=== PATIENT | female | born 1940 | race Caucasian/White ===

== ENCOUNTER → 2016-05-02 | Outpatient (CLI) | payer MEDICARE, BC ==
--- NOTE | ~2016-05-02 | ECH ---
Transthoracic Echocardiography Report (TTE) Demographics Patient Name GENNA REES Date of Study 05/02/2016 Patient Number [id number] Visit Number [id number] Date of 1940 Room Number Accession Number [id number] Gender Female Age 75 year(s) Referring Srikanth Noel Batterboard Setter Kathy Lowe [facility] Physician Physician Interpreting Fernando Key Lead Javascript Engineer Physician MD Supervising Ordering Physician Srikanth Noel MD, MD/P Nurse Stress Operations Processor Conclusions Summary Technically adequate exam. The estimated left ventricular ejection fraction is 60-65%. Mild left ventricular hypertrophy. Diastolic assessment reveals Grade I diastolic dysfunction. Bubble study was done, there is no evidence for a PFO or ASD. No significant valvular abnormalities. Procedure Type of Study TTE procedure:Echo Complete SF. Procedure Date Date: 05/02/2016 Start: 09:37 AM Technical Quality: Adequate visualization Additional Indications:family history of PFO Appropriate Use Criteria: 9 Contrast Medium: Bubble Study. Height: 62 inches Weight: 150 pounds BSA: 1.69 m Rhythm: Within normal limits HR: 67 bpm BP: 129/63 mmHg M-Mode/2D Measurements LV Diastolic Dimension: 3.37 cm LV Systolic Dimension: 1.97 cm LV Septum Diastolic: 1.11 cm LV PW Diastolic: 1.2 cm AO Root Dimension: 2.88 cm Cardiac Output: 3 l/min LA Dimension: 3.51 cm Cardiac Index: 1.78 l/min*m RV Diastolic Dimension: 3.29 cm LA volume index: 21 ml/m LVOT: 1.99 cm LVOT VTI: 14.41 cm RV Base: 2.4 cm LV Stroke volume: 44.8 ml RV Mid: 1.5 cm LV Stroke volume index: 26.51 ml/m RV Length: 6.8 cm TAPSE: 2 cm TDI-S': 11 cm/s Doppler Measurements AV Peak Velocity: 1.1 m/s MV Peak E-Wave: 0.61 m/s AV Peak Gradient: 4.84 mmHg MV Peak A-Wave: 1.05 m/s AV Mean Gradient: 3.07 mmHg MV E/A Ratio: 0.58 LVOT Peak Velocity: 0.71 m/s MV P1/2t: 64.1 msec AV Area (Continuity):1.76 cm MV Deceleration Time: 207.2 msec TR Velocity:2.28 m/s MV Area (PHT): 3.43 cm TR Gradient:20.79 mmHg Estimated RAP:5 mmHg Estimated PASP: 25.79 mmHg Estimated RVSP: 26 mmHg RA Area: 11.56 cm Findings Left Ventricle The left ventricle is normal in size . Mild left ventricular hypertrophy. Diastolic assessment reveals Grade I diastolic dysfunction. Right Ventricle Normal right ventricle structure and function. Left Atrium Normal left atrial size. Bubble study was done, there is no evidence for a PFO or ASD. Right Atrium Normal right atrial size. Mitral Valve Normal mitral valve structure and function. Mild mitral regurgitation by color Doppler. Aortic Valve Normal aortic valve structure and function. There is no aortic regurgitation by color Doppler. Tricuspid Valve Normal appearing tricuspid valve. Trivial tricuspid regurgitation by color Doppler. Estimated pulmonary pressures within normal limits. Pulmonic Valve The pulmonic valve is not well visualized. Pericardial Effusion No evidence of pericardial effusion. Miscellaneous Visualized portions of the aortic root and ascending aorta appear normal in size. Pleural Effusion No evidence of pleural effusion. Signature
== END | disposition home or self-care (01) ==
LOC: CARD 04-25 09:00 → RAD.S 04-25 09:00 → CARD 09:00
DX: Z12.31 Encounter for screening mammogram for malignant neoplasm of breast (principal); R92.1 Mammographic calcification found on diagnostic imaging of breast; Q21.1 Atrial septal defect; I51.89 Other ill-defined heart diseases